=== PATIENT | male | born 1985 ===

== ENCOUNTER 2017-09-10 21:02 | Emergency (ER) | payer BC ==
[2017-09-10] MEDS ORDERED: Sodium Chloride 0.9% 1,000 ML IV ONE (21:18)
[2017-09-10] MEDS ORDERED: Ondansetron 4 MG/2 ML SDV IVPUSH ONE (21:18)
[2017-09-10] MEDS ORDERED: Ketorolac 30 MG/ML SDV IVPUSH ONE (21:18)
--- NOTE | 2017-09-10 21:20 | EDM.PDOC ---
ED HPI GENERAL MEDICAL PROBLEM - General Chief Complaint: Chest Pain Stated Complaint: PT HAS CHEST PAINS Time Seen by Provider: 09/10/17 21:19 Source of Information: Reports: Patient - History of Present Illness INITIAL COMMENTS - FREE TEXT/NARRATIVE: HISTORY AND PHYSICAL: History of present illness: [Patient presents with a complaint of chest pain over the lower rib margin on the right radiating to his back and shoulder over the last 24 hours right 6 out of 10 no apparent distress tender on palpation no fever chills sweats Patient had eaten salad with ranch dressing as well as sausage for dinner tonight developing symptoms. ] Pain 1 out of 10 patient in no distress at current posttreatment Review of systems: As per history of present illness and below otherwise all systems reviewed and negative. Past medical history: As per history of present illness and as reviewed below otherwise noncontributory. Surgical history: As per history of present illness and as reviewed below otherwise noncontributory. Social history: No reported history of drug or alcohol abuse. Family history: As per history of present illness and as reviewed below otherwise noncontributory. Physical exam: HEENT: Atraumatic, normocephalic, pupils reactive, negative for conjunctival pallor or scleral icterus, mucous membranes moist, throat clear, neck supple, nontender, trachea midline. Lungs: Clear to auscultation, breath sounds equal bilaterally, chest nontender. Heart: S1S2, regular, negative for clicks, rubs, or JVD. Abdomen: Soft, nondistended, tender in the right upper quadrant no guarding or rebound. Negative for masses or hepatosplenomegaly. Negative for costovertebral tenderness. Pelvis: Stable nontender. Genitourinary: Deferred. Rectal: Deferred. Extremities: Atraumatic, negative for cords or calf pain. Neurovascular unremarkable. Neuro: Awake, alert, oriented. Cranial nerves II through XII unremarkable. Cerebellum unremarkable. Motor and sensory unremarkable throughout. Exam nonfocal. Diagnostics: [CBC CMP UA amylase lipase EKG Ultrasound right upper quadrant ] Therapeutics: [1 L normal saline bolus Zofran 8 mg IV Toradol 30 mg IV Patient improved with treatment above pain 0-1 out of 10, he was offered observation admission and declined/refused to assist with pain control as needed however patient is feeling much better and desires to leave. We'll provide a surgical referral for Tuesday with Dr. Blake, as patient will need a HIDA scan likely,. Patient currently lives in the [place] area his [place] on area [employer] rig he desires to attempt to make his own arrangements of following up with surgery in the [place] however I'm uncertain that they have a HIDA scan hence we are making ER referral for evaluation as the patient will be in the area and may be able to get his HIDA scan and surgery or he may seek surgery elsewhere, he has voiced this although I think it would be best if we make arrangements so he has guaranteed follow-up rather than him trying to seek treatment on his own he will call and call and cancel his surgical referral if he is able to set up his own follow-up Patient may certainly return if symptoms persist or worsen Sadorus Jose Cipro [place] diet ] Impression: [Right upper quadrant pain] Biliary colic Definitive disposition and diagnosis as appropriate pending reevaluation and review of above. right lower rib Pain Score (Numeric/FACES): 3 - Related Data Allergies Allergy/AdvReac Type Severity Reaction Status Date / Time Sulfa (Sulfonamide Allergy Hives Verified 09/10/17 21:26 Antibiotics) Home Meds: Home Meds . [No Known Home Meds] 09/10/17 [History] Past Medical History - Past Health History Medical/Surgical History: Denies Medical/Surgical History Social & Family History - Family History Family Medical History: Noncontributory - Tobacco Use Smoking Status *Q: Never Smoker - Recreational Drug Use Recreational Drug Use: No ED ROS GENERAL - Review of Systems Review Of Systems: ROS reveals no pertinent complaints other than HPI. ED EXAM, GENERAL - Physical Exam Exam: See Below Course - Vital Signs Last Recorded V/S: Last Vital Signs Temp 98.1 F 09/10/17 21:02 Pulse 86 09/10/17 21:02 Resp 18 09/10/17 21:02 BP 131/89 09/10/17 21:02 Pulse Ox 97 09/10/17 21:02 - Orders/Labs/Meds Orders: Active Orders 24 hr Category Date Time Status EKG Documentation Completion [RC] STAT Care 09/10/17 21:20 Active Abdomen Ltd [US] Stat Exams 09/10/17 21:18 Taken Labs: Laboratory Tests 03/24/18 03/24/18 03/24/18 Range/Units 21:30 21:32 21:32 WBC 9.35 (4.0-11.0) K/uL RBC 5.38 (4.50-5.90) M/uL Hgb 16.2 (13.0-17.0) g/dL Hct 45.7 (38.0-50.0) % MCV 84.9 (80.0-98.0) fL MCH 30.1 (27.0-32.0) pg MCHC 35.4 (31.0-37.0) g/dL RDW Std Deviation 37.0 (28.0-62.0) fl RDW Coeff of Mariajose 12 (11.0-15.0) % Plt Count 190 (150-400) K/uL MPV 11.50 (7.40-12.00) fL Neut % (Auto) 64.3 (48.0-80.0) % Lymph % (Auto) 25.0 (16.0-40.0) % [place] % (Auto) 8.6 (0.0-15.0) % Eos % (Auto) 1.8 (0.0-7.0) % Baso % (Auto) 0.3 (0.0-1.5) % Neut # (Auto) 6.0 H (1.4-5.7) K/uL Lymph # (Auto) 2.3 (0.6-2.4) K/uL [place] # (Auto) 0.8 (0.0-0.8) K/uL Eos # (Auto) 0.2 (0.0-0.7) K/uL Baso # (Auto) 0.0 (0.0-0.1) K/uL Nucleated RBC % 0.0 /100WBC Nucleated RBCs # 0 K/uL Sodium 140 (136-148) mmol/L Potassium 3.5 (3.5-5.1) mmol/L Chloride 104 (98-107) mmol/L Carbon Dioxide 27.2 (21.0-32.0) mmol/L BUN 13 (7.0-18.0) mg/dL Creatinine 1.3 (0.8-1.3) mg/dL Est Cr Clr Drug Dosing 88.71 mL/min Estimated GFR (MDRD) > 60.0 ml/min Glucose 82 (74-106) mg/dL Calcium 9.3 (8.5-10.1) mg/dL Total Bilirubin 0.3 (0.2-1.0) mg/dL AST 22 (15-37) IU/L ALT 47 (14-63) IU/L Alkaline Phosphatase 99 (46-116) U/L Troponin I < 0.050 (0.000-0.056) ng/mL Total Protein 7.5 (6.4-8.2) g/dL Albumin 4.7 (3.4-5.0) g/dL Globulin 2.8 (2.0-3.5) g/dL Albumin/Globulin Ratio 1.7 (1.3-2.8) Amylase 65 (25-115) U/L Lipase 210 (73-393) U/L Urine Color YELLOW Urine Appearance CLEAR Urine pH 6.0 (5.0-8.0) Ur Specific [place] 1.010 (1.001-1.035) Urine Protein NEGATIVE (NEGATIVE) mg/dL Urine Glucose (UA) NEGATIVE (NEGATIVE) mg/dL Urine Ketones NEGATIVE (NEGATIVE) mg/dL Urine Occult Blood NEGATIVE (NEGATIVE) Urine Nitrite NEGATIVE (NEGATIVE) Urine Bilirubin NEGATIVE (NEGATIVE) Urine Urobilinogen 0.2 (<2.0) EU/dL Ur Leukocyte Esterase NEGATIVE (NEGATIVE) Urine RBC NONE SEEN (0-2/HPF) Urine WBC 0-1 (0-5/HPF) Ur Epithelial Cells NOT SEEN (NONE-FEW) Urine Bacteria RARE (NEGATIVE) Meds: Medications Discontinued Medications Generic Name Dose Route Start Last Admin Trade Name Freq PRN Reason Stop Dose Admin Sodium Chloride 1,000 mls @ 999 mls/hr 09/10/17 21:18 09/10/17 21:36 Normal Saline IV 09/10/17 22:18 999 mls/hr STAT ONE Administration Ketorolac Tromethamine 30 mg 09/10/17 21:18 09/10/17 21:38 Toradol IVPUSH 09/10/17 21:19 30 mg ONETIME ONE Administration Ondansetron HCl 8 mg 09/10/17 21:18 09/10/17 21:38 Zofran IVPUSH 09/10/17 21:19 8 mg ONETIME ONE Administration Departure - Departure Time of Disposition: 23:20 Disposition: Home, Self-Care 01 Condition: Good Clinical Impression: Biliary colic - Discharge Information Referrals: PCP,None [Primary Care Provider] - Forms: ED Department Discharge Additional Instructions: Plan diet as discussed Avoid greasy foods are high fat containing foods Return if symptoms persist or worsen or if intractable pain fever or intractable vomiting as these symptoms would prompt return to the ER Follow-up with general surgery as scheduled on Tuesday If you are able to make your own arrangements that is completely acceptable however we will provide the ER referral to our general surgeon in case you're unable to get follow-up as needed [facility] - General Surgery Professional [address], [address] [place] [address] The following information is given to patients seen in the emergency department who are being discharged to home. This information is to outline your options for follow-up care. We provide all patients seen in our emergency department with a follow-up referral. The need for follow-up, as well as the timing and circumstances, are variable depending upon the specifics of your emergency department visit. If you don't have a primary care physician on staff, we will provide you with a referral. We always advise you to contact your personal physician following an emergency department visit to inform them of the circumstance of the visit and for follow-up with them and/or the need for any referrals to a consulting specialist. The emergency department will also refer you to a specialist when appropriate. This referral assures that you have the opportunity for follow-up care with a specialist. All of these measure are taken in an effort to provide you with optimal care, which includes your follow-up. Under all circumstances we always encourage you to contact your private physician who remains a resource for coordinating your care. When calling for follow-up care, please make the office aware that this follow-up is from your recent emergency room visit. If for any reason you are refused follow-up, please contact the [facility] emergency department at and asked to speak to the emergency department charge nurse. - My Orders Last 24 Hours: My Active Orders 09/10/17 21:18 Abdomen Ltd [US] Stat 09/10/17 21:20 EKG Documentation Completion [RC] STAT - Assessment/Plan Last 24 Hours: My Active Orders 09/10/17 21:18 Abdomen Ltd [US] Stat 09/10/17 21:20 EKG Documentation Completion [RC] STAT
[2017-09-10 22:09] LABS: CHLORIDE,CL 104 mmol/L (98-107); SODIUM,NA 140 mmol/L (136-148)
--- NOTE | 2017-09-12 15:31 | US ---
EXAM DATE: 09/10/17 PATIENT'S AGE: 32 Patient: SUSSY GALLEGOS Facility: [place], [place] Site . Site : 1985 Study: US Abdomen [id number] 10:03:23 PM Ordering Physician: Magdi Adkins Final Report: INDICATION: Right upper quadrant pain TECHNIQUE: Ultrasound abdomen limited. Sonographic images of the right upper quadrant were obtained using zapien-scale and color Doppler images. COMPARISON: None FINDINGS: Liver: Normal in size and echotexture. No masses. No intrahepatic biliary dilatation. Gallbladder: No stones or sludge. Normal wall thickness. No pericholecystic fluid. Positive sonographic Vernon`s sign. Common bile duct: 2-3 mm. Pancreas: Not well visualized due to adjacent bowel gas. Right kidney: 10.2 cm. Normal echotexture and cortex. No masses, stones, or hydronephrosis. IMPRESSION: Sonographically normal gallbladder and common bile duct with positive sonographic Vernon`s sign. Dictated by Phuc Hansen MD @ 09/10/2017 10:33:51 PM Dictated by: Phuc Hansen MD @ 09/10/2017 22:33:55 (Electronic Signature) Report Signed by Proxy. BETTY
== END 2017-09-10 23:41 | disposition home or self-care (01) ==
LOC: MW.ED 21:02
DX: K80.50 Calculus of bile duct without cholangitis or cholecystitis without obstruction (principal); Z88.2 Allergy status to sulfonamides
CPT/HCPCS: 76705; 80053; 81001; 82150; 83690; 84484; 85025; 93005; 96361; 96374; 96375; 99285; J1885; J2405; J7040; 99283